=== PATIENT | female | born 1985 | race Caucasian/White ===

== ENCOUNTER 2018-05-20 10:19 | Emergency (ER) | payer BC, OTHER ==
[~2018-05-20] VITALS: Ht 162.6 cm; Wt 97.0 kg
[~2018-05-20 10:19] MED LIST: CYCL-1 PO; ONDA4TAB12 PO; ONDA8TAB9 PO
[2018-05-20 12:58] VITALS: BP 106/75
== END 2018-05-20 13:01 | disposition home or self-care (01) ==
LOC: ER 10:20
DX: O92.6 Galactorrhea (principal); Z88.8 Allergy status to other drugs, medicaments and biological substances; Z79.899 Other long term (current) drug therapy
CPT/HCPCS: 99283

== ENCOUNTER 2018-05-27 10:10 | Emergency (ER) | payer OTHER ==
[~2018-05-27] VITALS: Ht 162.6 cm; Wt 81.0 kg
[2018-05-27 10:17] VITALS: BP 120/81
[2018-05-27] MEDS ORDERED: LORazepam 1 MG tablet PO ONE (10:35)
[2018-05-27 10:53] LABS: BASOPHILS % (AUTO) 0.5 % (0-1); EOSINOPHILS # (AUTO) 0.2 X10'3 (0-0.9); LYMPHOCYTES # (AUTO) 2.3 X10'3 (1.1-4.8); LYMPHOCYTES % (AUTO) 29.4 % (21-51); MEAN CORPUSCULAR HEMOGLOBIN 25.1 PG (27.0-31.0); MEAN CORPUSCULAR HGB CONC 33.4 % (33.0-36.5); MEAN CORPUSCULAR VOLUME 75.1 FL (78-98); MEAN PLATELET VOLUME 7.6 FL (7.4-10.4); MONOCYTES # (AUTO) 0.5 X10'3 (0-0.9); MONOCYTES % (AUTO) 5.8 % (2-12); NEUTROPHILS # (AUTO) 4.9 X10'3 (1.8-7.7); NEUTROPHILS % (AUTO) 61.3 % (42-75); PLATELET COUNT 276 X10'3 (140-440); RED BLOOD COUNT 5.19 X10'6 (4.20-5.60); RED CELL DISTRIBUTION WIDTH 14.1 % (11.5-14.5)
[2018-05-27 11:08] LABS: ALANINE AMINOTRANSFERASE 19 U/L (12-78); ALBUMIN 4.1 G/DL (3.4-5.0); ALKALINE PHOSPHATASE 78 IU/L (46-116); ANION GAP 10 (8-16); ASPARTATE AMINO TRANSFERASE 22 U/L (10-37); BILIRUBIN,TOTAL 0.7 MG/DL (0.1-1.0); BLOOD UREA NITROGEN 11 MG/DL (7-18); BUN/CREATININE RATIO 14.5 (6.6-38.0); CALCIUM 9.6 MG/DL (8.5-10.1); CHLORIDE 103 MMOL/L (99-107); CREATININE 0.76 MG/DL (0.40-0.90); GLUCOSE 86 MG/DL (70-104); POTASSIUM 3.9 MMOL/L (3.5-5.1); SODIUM 138 MMOL/L (135-145); TOTAL CARBON DIOXIDE 25.3 MMOL/L (24-32); TOTAL PROTEIN 8.4 G/DL (6.4-8.2); eGFR 89 ML/MIN
[2018-05-27 11:17] LABS: ETHANOL < 0.010 GM/DL (0.0-0.010)
[2018-05-27 12:06] LABS: CLARITY,URINE CLOUDY (Clear); COLOR,URINE YELLOW (Yellow); GLUCOSE, URINE NEGATIVE (Neg); KETONES,URINE NEGATIVE (Neg); LEUKOCYTE ESTERASE ,URINE NEGATIVE (Neg); NITRITES, URINE NEGATIVE (Neg); OCCULT BLOOD,URINE TRACE-INTACT (Neg); PROTEIN,URINE NEGATIVE (Neg); UA COLLECTION TYPE CLN CATCH MIDSTREAM; URINE HCG NEGATIVE (NEG); UROBILINOGEN,URINE 0.2 E.U/dL (0.2-1.0)
[2018-05-27 12:12] LABS: MUCUS STRANDS MODERATE /LPF (Neg); SQUAMOUS EPITHELIAL CELL,UR MANY /LPF (FEW)
[2018-05-27 12:13] LABS: BACTERIA,URINE 1+ /HPF (Neg); RBC,URINE 0-2 /HPF (0-2); WBC,URINE 0-4 /HPF (0-4)
[2018-05-27 12:14] LABS: URINE AMPHETAMINE SCREEN NEGATIVE (Neg); URINE BARBITUATE SCREEN NEGATIVE (Neg); URINE BENZODIAZEPINES SCREEN NEGATIVE (Neg); URINE CANNABINOID SCREEN NEGATIVE (Neg); URINE COCAINE SCREEN NEGATIVE (Neg); URINE METHADONE SCREEN NEGATIVE (Neg); URINE OPIATE SCREEN NEGATIVE (Neg); URINE PHENCYCLIDINE SCREEN NEGATIVE (Neg)
[2018-05-27] MEDS ORDERED: RISP3TAB11 PO (12:22)
[2018-05-27] MEDS ORDERED: QUET-1 PO (14:26)
== END 2018-05-27 15:04 | disposition home or self-care (01) ==
LOC: ER 10:10
DX: F31.9 Bipolar disorder, unspecified (principal); Z88.5 Allergy status to narcotic agent
CPT/HCPCS: 36415; 80053; 80305; 80320; 81001; 81025; 84443; 85025; 99284

== ENCOUNTER 2020-03-15 17:03 | Emergency (ER) | payer BC ==
[~2020-03-15] VITALS: Ht 162.6 cm; Wt 88.2 kg
[~2020-03-15 17:03] MED LIST changes: +BENCRM TOP; +FAMO40TA73 PO; +LORA-835 PO; +QUET-1 PO; +RISP3TAB11 PO
[2020-03-15 17:18] VITALS: BP 126/75
[2020-03-15] MEDS ORDERED: PENI500T2 PO (18:31)
[2020-03-15] MEDS ORDERED: IBUP-1984 PO (18:31)
== END 2020-03-15 18:36 | disposition home or self-care (01) ==
LOC: ER 17:04
DX: K04.7 Periapical abscess without sinus (principal); F31.9 Bipolar disorder, unspecified; Z88.8 Allergy status to other drugs, medicaments and biological substances; Z79.899 Other long term (current) drug therapy
CPT/HCPCS: 99283

== ENCOUNTER 2020-08-31 20:43 | Emergency (ER) | payer SELFPAY ==
[~2020-08-31] VITALS: Ht 162.6 cm; Wt 88.6 kg
[2020-08-31 20:49] VITALS: BP 118/83
--- NOTE | 2020-08-31 20:56 | NUR ---
nose clamp applied
[2020-08-31] MEDS ORDERED: oxymetazoline 15 ML nasal spray NS ONE (21:35)
[2020-08-31] MEDS ORDERED: tranexamic acid 100mg/ml inj. TP ONE (21:35)
== END 2020-08-31 22:31 | disposition home or self-care (01) ==
LOC: ER 20:43
DX: R04.0 Epistaxis (principal); I10 Essential (primary) hypertension; F31.9 Bipolar disorder, unspecified; Z88.8 Allergy status to other drugs, medicaments and biological substances; Z79.899 Other long term (current) drug therapy
CPT/HCPCS: 99283; 99284

== ENCOUNTER 2021-03-08 20:16 | Emergency (ER) | payer OTHER ==
[~2021-03-08] VITALS: Ht 162.6 cm; Wt 95.5 kg
[2021-03-08 20:28] VITALS: BP 135/99
[2021-03-08] MEDS ORDERED: ketorolac tromethamine 15mg/ml inj. IM ONE (21:30)
[2021-03-08] MEDS ORDERED: HYDROcodone/acetaminophen 5mg/325mg tablet PO ONE (22:35)
[2021-03-08] MEDS ORDERED: ondansetron 4mg rapidly disintigrating tab PO ONE (22:35)
[2021-03-08] MEDS ORDERED: HYDR-3965 PO (22:40)
[2021-03-08] MEDS ORDERED: IBUP-1984 PO (22:40)
[2021-03-08] MEDS ORDERED: ONDA4TAB6 PO (22:40)
== END 2021-03-08 23:05 | disposition home or self-care (01) ==
LOC: ER 20:17
DX: M25.572 Pain in left ankle and joints of left foot (principal); I10 Essential (primary) hypertension; F31.9 Bipolar disorder, unspecified; Z88.8 Allergy status to other drugs, medicaments and biological substances; Z79.899 Other long term (current) drug therapy
CPT/HCPCS: 29515; 73610; 96372; 99283; J1885

== ENCOUNTER 2022-01-26 19:18 | Emergency (ER) | payer OTHER ==
[~2022-01-26] VITALS: Ht 162.6 cm; Wt 97.7 kg
[~2022-01-26 19:18] MED LIST changes: +ONDA4TAB6 PO
[2022-01-26] MEDS ORDERED: ondansetron 4mg rapidly disintigrating tab PO ONE (21:25)
[2022-01-26] MEDS ORDERED: ketorolac trometh. 30mg/ml inj. IV ONE (21:25)
[2022-01-26] MEDS ORDERED: ketorolac trometh inj. 60 MG/2 ML VIAL IM ONE (21:35)
--- NOTE | 2022-01-26 21:49 | NUR ---
Medication administration verified with Maximus LEWIS.
[2022-01-26] MEDS ORDERED: cyclobenzaprine 10mg tablet PO ONE (22:05)
[2022-01-26] MEDS ORDERED: IBUP-1986 PO (22:23)
[2022-01-26] MEDS ORDERED: CYCL-1 PO (22:23)
[2022-01-26 22:29] VITALS: BP 101/68
== END 2022-01-26 22:30 | disposition home or self-care (01) ==
LOC: ER 19:19
DX: S39.012A Strain of muscle, fascia and tendon of lower back, initial encounter (principal); M54.31 Sciatica, right side; I10 Essential (primary) hypertension; F31.9 Bipolar disorder, unspecified; X58.XXXA Exposure to other specified factors, initial encounter; Y93.89 Activity, other specified; Y92.89 Other specified places as the place of occurrence of the external cause; Y99.8 Other external cause status; Z88.8 Allergy status to other drugs, medicaments and biological substances; Z79.899 Other long term (current) drug therapy
CPT/HCPCS: 96372; 99283; J1885

== ENCOUNTER 2022-12-16 07:02 | Emergency (ER) | payer SELFPAY ==
[~2022-12-16] VITALS: Ht 162.6 cm; Wt 97.0 kg
[~2022-12-16 07:02] MED LIST changes: +IBUP-1986 PO
[2022-12-16 07:09] VITALS: BP 111/78
[2022-12-16] MEDS ORDERED: ibuprofen tablet 400 MG TABLET PO ONE (09:20)
== END 2022-12-16 18:34 | disposition home or self-care (01) ==
LOC: ER 07:02
DX: S46.811A Strain of other muscles, fascia and tendons at shoulder and upper arm level, right arm, initial encounter (principal); M75.41 Impingement syndrome of right shoulder; F31.9 Bipolar disorder, unspecified; I10 Essential (primary) hypertension; Z88.5 Allergy status to narcotic agent; Z88.8 Allergy status to other drugs, medicaments and biological substances; X58.XXXA Exposure to other specified factors, initial encounter; Y93.89 Activity, other specified; Y92.89 Other specified places as the place of occurrence of the external cause; Y99.8 Other external cause status
CPT/HCPCS: 99282; A4565

== ENCOUNTER 2023-01-02 16:50 | Emergency (ER) | payer SELFPAY ==
[~2023-01-02] VITALS: Ht 162.6 cm; Wt 95.5 kg
[2023-01-02 17:01] VITALS: BP 112/83
[2023-01-02] MEDS ORDERED: mupirocin 2% ointment 22GM TP STA (18:08)
== END 2023-01-02 18:41 | disposition home or self-care (01) ==
LOC: ER 16:50
DX: L03.011 Cellulitis of right finger (principal); I10 Essential (primary) hypertension; F31.9 Bipolar disorder, unspecified; Z88.8 Allergy status to other drugs, medicaments and biological substances; Z79.899 Other long term (current) drug therapy
CPT/HCPCS: 99283

== ENCOUNTER 2023-04-27 17:59 | Emergency (ER) | payer BC ==
[~2023-04-27] VITALS: Ht 162.6 cm; Wt 101.8 kg
[2023-04-27] MEDS ORDERED: normal saline 1000ml 1,000 ML IV ONE (18:25)
[2023-04-27 18:54] LABS: BASOPHILS # (AUTO) 0.1 X10'3 (0-0.2); BASOPHILS % (AUTO) 0.9 % (0-1); EOSINOPHILS # (AUTO) 0.5 X10'3 (0-0.9); EOSINOPHILS % (AUTO) 5.3 % (0-6); HEMATOCRIT 39.3 % (35.0-45.0); HEMOGLOBIN 12.9 g/dl (12.0-16.0); LYMPHOCYTES # (AUTO) 3.1 X10'3 (1.1-4.8); LYMPHOCYTES % (AUTO) 34.8 % (21-51); MEAN CORPUSCULAR HEMOGLOBIN 25.5 PG (27.0-31.0); MEAN CORPUSCULAR HGB CONC 32.8 g/dL (33.0-36.5); MEAN CORPUSCULAR VOLUME 77.6 FL (78-98); MEAN PLATELET VOLUME 7.4 FL (7.4-10.4); MONOCYTES # (AUTO) 0.5 X10'3 (0-0.9); MONOCYTES % (AUTO) 5.3 % (2-12); NEUTROPHILS # (AUTO) 4.7 X10'3 (1.8-7.7); NEUTROPHILS % (AUTO) 53.7 % (42-75); PLATELET COUNT 283 X10'3 (140-440); RED BLOOD COUNT 5.06 X10'6 (4.20-5.60); RED CELL DISTRIBUTION WIDTH 13.7 % (11.5-14.5); WHITE BLOOD COUNT 8.8 X10'3 (4.5-11.0)
[2023-04-27 18:56] LABS: URINE HCG NEGATIVE (NEG)
[2023-04-27 19:04] LABS: CLARITY,URINE BLOODY (Clear); COLOR,URINE RED (Yellow); UA COLLECTION TYPE CLN CATCH MIDSTREAM
[2023-04-27 19:04] LABS: ANION GAP 14 (8-16); BILIRUBIN,TOTAL 0.3 MG/DL (0.1-1.0); BLOOD UREA NITROGEN 12 MG/DL (7-18); BUN/CREATININE RATIO 13.2 (10.0-20.0); CHLORIDE 104 MMOL/L (99-107); CREATININE 0.91 MG/DL (0.40-0.90); GLUCOSE 89 MG/DL (70-104); POTASSIUM 3.7 MMOL/L (3.5-5.1); SODIUM 143 MMOL/L (135-145); TOTAL CARBON DIOXIDE 24.9 MMOL/L (24-32); TOTAL PROTEIN 7.7 G/DL (6.4-8.2); eGFR 70 ML/MIN
[2023-04-27 19:05] LABS: ALANINE AMINOTRANSFERASE 18 U/L (12-78); ALBUMIN 3.7 G/DL (3.4-5.0); ALBUMIN/GLOBULIN RATIO 0.9 (1.1-1.5); ALKALINE PHOSPHATASE 73 IU/L (46-116); ASPARTATE AMINO TRANSFERASE 19 U/L (10-37)
[2023-04-27 19:05] LABS: RBC,URINE TNTC /HPF (0-2)
[2023-04-27 19:07] LABS: BACTERIA,URINE 2+ /HPF (Neg); MUCUS STRANDS MANY /LPF (Neg); SQUAMOUS EPITHELIAL CELL,UR MANY /LPF (FEW)
[2023-04-27] MEDS ORDERED: cephalexin 500mg capsule PO ONE (19:15)
[2023-04-27 19:28] VITALS: BP 112/67
[2023-04-27] MEDS ORDERED: medroxyprogesterone acet. 2.5mg tablet PO ONE (19:40)
[2023-04-27] MEDS ORDERED: medroxyprogesterone acet. 2.5mg tablet PO SCH (19:40)
[2023-04-27] MEDS ORDERED: MEDR10TA PO (19:49)
[2023-04-27] MEDS ORDERED: CEPH250T PO (19:49)
== END 2023-04-27 20:25 | disposition home or self-care (01) ==
LOC: ER 18:00
DX: N93.9 Abnormal uterine and vaginal bleeding, unspecified (principal); N39.0 Urinary tract infection, site not specified; I10 Essential (primary) hypertension; Z79.899 Other long term (current) drug therapy; Z79.2 Long term (current) use of antibiotics; Z88.8 Allergy status to other drugs, medicaments and biological substances
CPT/HCPCS: 36415; 76830; 76857; 80053; 81001; 81025; 85025; 93976; 96360; 99284; J7030

== ENCOUNTER 2025-09-15 21:23 | Emergency (ER) | payer BC ==
[~2025-09-15] VITALS: Ht 162.6 cm; Wt 115.0 kg
[~2025-09-15 21:23] MED LIST changes: +DIAZ-351 PO; +MEDR10TA PO; +ONDA-243 PO; -ONDA4TAB12 PO
[2025-09-15 21:29] VITALS: BP 130/88; PULSE 104; RESP 18; O2SAT 97
--- NOTE | 2025-09-15 22:06 | Physician Documentation ---
History of Present Illness ~ Chief Complaint: Rash Stated Complaint: RASH Time Seen by MD: 22:06 Primary Medical Doctor: Dr. Jenny Amaya HPI Patient presents to the emergency room with rash on her back that has pruritic in nature. No known exposures. She is also noted to have what she describes as ringworm on her left hip that appeared two weeks ago. Medication Reconciliation Allergies: Coded Allergies: risperidone (Verified Allergy, Unknown, 03/08/21) ziprasidone HCl (Verified Allergy, Unknown, 07/20/15) ziprasidone mesylate (Verified Allergy, Unknown, 07/20/15) Scheduled Cyclobenzaprine* (Cyclobenzaprine*), 1 TAB PO Q8H Diphenhydramine Hcl/Zinc Acet (Benadryl 2% Cream), 1 INCH TOP BID Famotidine (Pepcid), 1 TAB PO DAILY Ibuprofen (Ibuprofen), 1 TAB PO Q8H Loratadine/Pseudoephedrine (Claritin-D 24 Hour Tablet), 1 TAB PO DAILY Medroxyprogesterone Acet (Provera), 1 TAB PO DAILY Ondansetron Hcl (Zofran), 1 TAB PO Q6H Quetiapine Fumarate (Seroquel), 100 MG PO HS Scheduled PRN Cyclobenzaprine* (Cyclobenzaprine*), 1 TABLET PO Q8H PRN for muscle spasms Diazepam (Diazepam), 1 TAB PO Q12H PRN PRN for dizziness/vertigo ONDANSETRON ODT 4mg tablet (Ondansetron Odt), 1 TABLET PO Q8HPRN PRN for nausea/vomiting Ondansetron (Zofran Odt), 8 MG PO QID PRN for nausea/vomiting Miscellaneous Medications Risperidone (Risperdal), 3 MG PO, (Reported) Past Medical History Past Medical History: Hypertension, Bipolar Past Surgical History: no surgical history Alcohol Use: None Drug Use: none Lives with: Family Lives In: Home Occupation: employed Review of Systems ROS All review of systems negative except as per HPI Physical Exam Vital Signs: Temperature: 98.8, Heart Rate: 104, Respiratory Rate: 18, BP: 130/88, Pulse Oximetry: 97, Weight: 115.000 Physical Exam General: Patient is awake, alert, oriented x4 in no acute distress and well appearing.~ Head: Normocephalic and atraumatic. Eyes: Conjunctival normal. EOMI. PERRL. ENT: Mucous membranes moist. Neck: Supple, trachea is midline. Chest: Clear to auscultation bilaterally without rales, rhonchi, or wheezes. There is no accessory muscle use or retractions. Cardiac: RRR without murmurs, gallops, or rubs. Skin: Blanching skin rash with macular papular lesions measuring approximately 1 cm and oval. Larger oval rash on left hip Progress Results/Orders Results/Orders Vital Signs 09/15/25 21:29 Temp 98.8 Pulse 104 Resp 18 B/P (MAP) 130/88 Pulse Ox 97 Medical Decision Making Additional information obtaine: N/A Findings Patient presents to the emergency room with rash as per HPI. Differentials include but are not limited to for psoriasis rosea, poison oak, contact dermati tis, fungal infection. Given patient's large lesion on left hip that preceded this symptoms on her back that has pruritic I believe patient is suffering from pityriasis rosea and that has not ringworm on her left hip that she believes but a herald patch. This was discussed with the patient. Symptomatic treatment only. Differential Dx:Considerations: Include: Abscess, AIDS/HIV, Anthrax (cutaneous), Atopic dermatitis, Candidiasis, Contact dermatitis, Drug reaction, Erythema multiforme, Erysipelas, Gangrene, Herpes zoster, Herpes simplex, Hidradenitis suppurativa, Impetigo, Intertrigo, Lymes disease, Molluscum contagiosum, Osteomyelitis, Pediculosis, Pityriasis rosea, Psoriaisis, RMSF, Rosacea, Scabies, Scarlet fever, Tinea, Urticaria, Varicella, Viral exanthema, Other Departure Disposition: 01 HOME / SELF CARE / HOMELESS Impression: Primary Impression: Pityriasis rosea Condition: Stable Discharge Instructions: Pityriasis Rosea Referrals: NO PRIMARY CARE PROVIDER (PCP) Prescriptions Triamcinolone Acetonide 0.5% Crm* (Kenalog 0.5% Crm*) 15 Gm Tube 1 APPLIC TOP Q12H for 30 Days, #15 GM apply to affected area(s) Prov: LEIF CRANDALL MD 09/15/25 Signature Scribe Signature: No scribe Attestation: The note accurately reflects work and decisions made by me.Leif Crandall MD 09/15/25 22:23 LEIF CRANDALL MD Sep 15, 2025 22:06
[2025-09-15] MEDS ORDERED: TRIA15CR61 TOP (22:23)
[2025-09-15 22:29] VITALS: TEMP 98.8
== END 2025-09-15 22:35 | disposition home or self-care (01) ==
LOC: ER 21:23
DX: L42 Pityriasis rosea (principal); I10 Essential (primary) hypertension; F31.9 Bipolar disorder, unspecified; Z88.8 Allergy status to other drugs, medicaments and biological substances; Z79.899 Other long term (current) drug therapy
CPT/HCPCS: 99283